=== PATIENT | male | born 1955 | race Caucasian/White ===

== ENCOUNTER → 2016-09-17 | Outpatient (CLI) | payer MEDICARE, SELFPAY | LOC: RAD 08:22 | DX: R06.02 Shortness of breath (principal); J90 Pleural effusion, not elsewhere classified; R91.8 Other nonspecific abnormal finding of lung field | CPT/HCPCS: 71020 ==

== ENCOUNTER → 2016-09-25 | Outpatient (CLI) | payer MEDICARE, SELFPAY | LOC: CT 07:42 | DX: R06.02 Shortness of breath (principal); R91.1 Solitary pulmonary nodule; J98.11 Atelectasis | CPT/HCPCS: 36415; 71260; 82565; 84520; J7050; Q9962 ==

== ENCOUNTER → 2021-02-24 | Outpatient (CLI) | payer OTHER ==
[~2021-02-24] MED LIST: ASPIRIN 325MG325 MG PO; ASPIRIN EC81 MG PO; ATORVASTATIN CA80 MG PO; CLOPIDOGREL75 MG PO; CYCLOBENZAPRINE10 MG PO; DULCOLAX STOOL100 MG PO; DURAGESIC 25 MCG1 EA TP; FENOFIBRATE145 MG PO; FENTANYL PATCH TD; FLEXERIL 10 MG10 MG PO; FOLIC ACID1 MG PO; FUROSEMIDE20 MG PO; GLUCOPHAGE500 MG PO; IMDUR ER TAB 3030 MG PO; IMDUR ER TAB 6060 MG PO; ISOSORBIDE MONO60 MG PO; LASIX20 MG PO; LIPITOR TAB 2020 MG PO; LOPRESSOR50 MG PO; MEDROL4 MG PO; METFORMIN HCL500 MG PO; METOPROLOL TART50 MG PO; MIRAPEX0.25 MG PO; OXYCODONE-ACET1 EACH PO; PERCOCET 10-321 EACH PO; PLAVIX75 MG PO; PRAMIPEXOLE DI0.5 MG PO; PROAIR HFA8.5 GM INH; PROTONIX40 MG PO; SPIRIVA18 MCG INH; SYMBICORT 160-1 INHA INH; TRELEGY ELLIPT1 EACH INH; TRELEGY ELLIPTA INH; TRICOR145 MG PO; VITAMIN D250000 UNIT PO
== END ==
LOC: HEART 5 08:48
DX: J45.909 Unspecified asthma, uncomplicated (principal)
CPT/HCPCS: 94060; 94729

== ENCOUNTER → 2021-04-22 | Day surgery (SDC) | payer OTHER ==
[~2021-04-22] VITALS: Ht 172.7 cm; Wt 61.2 kg
[~2021-04-22] MED LIST changes: +COMBIVENT RESPIM4 GM INH; +DALIRESP500 MCG PO; +DOCUSATE SODIU100 MG PO; +FEROSUL325 MG PO; +FISH OIL + D31 EACH PO; +LEXAPRO20 MG PO; +NITROSTAT0.4 MG SL
== END | disposition home or self-care (01) ==
LOC: OR 07:35
DX: K31.819 Angiodysplasia of stomach and duodenum without bleeding (principal); D50.0 Iron deficiency anemia secondary to blood loss (chronic); K64.0 First degree hemorrhoids; K92.1 Melena; I11.0 Hypertensive heart disease with heart failure; I50.9 Heart failure, unspecified; I25.10 Atherosclerotic heart disease of native coronary artery without angina pectoris; E78.5 Hyperlipidemia, unspecified; E78.00 Pure hypercholesterolemia, unspecified; E11.9 Type 2 diabetes mellitus without complications; E66.3 Overweight; K21.00 Gastro-esophageal reflux disease with esophagitis, without bleeding; K29.50 Unspecified chronic gastritis without bleeding; F17.200 Nicotine dependence, unspecified, uncomplicated; G47.33 Obstructive sleep apnea (adult) (pediatric); K21.9 Gastro-esophageal reflux disease without esophagitis; G89.29 Other chronic pain; F32.A Depression, unspecified; Z95.1 Presence of aortocoronary bypass graft; Z95.818 Presence of other cardiac implants and grafts; Z99.89 Dependence on other enabling machines and devices; Z68.20 Body mass index [BMI] 20.0-20.9, adult; Z79.899 Other long term (current) drug therapy; Z79.82 Long term (current) use of aspirin; Z88.5 Allergy status to narcotic agent; Z79.84 Long term (current) use of oral hypoglycemic drugs; Z90.49 Acquired absence of other specified parts of digestive tract; Z89.511 Acquired absence of right leg below knee
CPT/HCPCS: 82962; J2001; J2250; J2704; J3010; J7040

== ENCOUNTER → 2021-07-28 | Outpatient (CLI) | payer OTHER | LOC: KOH-I 13:53 | DX: M79.645 Pain in left finger(s) (principal); M19.042 Primary osteoarthritis, left hand | CPT/HCPCS: 73140 ==

== ENCOUNTER → 2021-08-14 | Outpatient (CLI) | payer OTHER ==
[2021-08-14 16:17] LABS: BORDETELLA PARAPERTUSSIS Not Detected (Not Detectd); BORDETELLA PERTUSSIS Not Detected (Not Detectd); CHLAMYDIA PNEUMONIAE Not Detected (Not Detectd); CORONAVIRUS HKU1 Not Detected (Not Detectd); CORONAVIRUS NL63 Not Detected (Not Detectd); CORONAVIRUS OC43 Not Detected (Not Detectd); CORONOAVIRUS 229E Not Detected (Not Detectd); HUMAN METAPNEUMOVIRUS Not Detected (Not Detectd); INFLUENZA A Not Detected (Not Detectd); INFLUENZA B Not Detected (Not Detectd); MYCOPLASMA PNEUMONIAE Not Detected (Not Detectd); PARAINFLUENZA VIRUS 1 Not Detected (Not Detectd); PARAINFLUENZA VIRUS 2 Not Detected (Not Detectd); PARAINFLUENZA VIRUS 3 Not Detected (Not Detectd); PARAINFLUENZA VIRUS 4 Not Detected (Not Detectd); RESPIRATORY SYNCYTIAL VIRUS Not Detected (Not Detectd)
[2021-08-14 17:36] LABS: HUMAN RHINOVIRUS/ENTEROVIRUS DETECTED (Not Detectd); SARS-CoV-2 NOT DETECTED (Not Detectd)
== END ==
LOC: LAB 15:36
PROVIDERS: Physician Assistant
DX: J44.1 Chronic obstructive pulmonary disease with (acute) exacerbation (principal); J06.9 Acute upper respiratory infection, unspecified; Z20.822 Contact with and (suspected) exposure to COVID-19; J90 Pleural effusion, not elsewhere classified; R91.8 Other nonspecific abnormal finding of lung field
CPT/HCPCS: 36415; 71046; 87633

== ENCOUNTER → 2021-08-18 | Outpatient (CLI) | payer OTHER | LOC: KOH-I 15:24 | DX: R31.0 Gross hematuria (principal); N32.9 Bladder disorder, unspecified; J92.9 Pleural plaque without asbestos | CPT/HCPCS: 74176 ==

== ENCOUNTER 2021-09-12 07:56 | Emergency (ER) | payer OTHER ==
[2021-09-12 08:47] LABS: HEMOGLOBIN 10.9 gm/dl (14.0-17.5); RED BLOOD COUNT 3.64 M/UL (4.20-5.50); WHITE BLOOD COUNT 11.2 K/UL (4.5-11.0)
[2021-09-12 09:11] LABS: BUN/CREATININE RATIO 29 (0-10)
== END 2021-09-13 08:55 ==
LOC: ER1 07:56
PROVIDERS: Student in an Organized Health Care Education/Training Program
DX: R33.9 Retention of urine, unspecified (principal); R31.0 Gross hematuria; Z20.822 Contact with and (suspected) exposure to COVID-19; I50.9 Heart failure, unspecified; J44.9 Chronic obstructive pulmonary disease, unspecified; Z95.1 Presence of aortocoronary bypass graft; Z79.82 Long term (current) use of aspirin; Z79.02 Long term (current) use of antithrombotics/antiplatelets
CPT/HCPCS: 80053; 81001; 85025; 99284; U0002

== ENCOUNTER 2021-10-04 04:52 | Emergency (ER) | payer OTHER ==
[2021-10-04 06:22] LABS: HEMOGLOBIN 12.3 gm/dl (14.0-17.5); RED BLOOD COUNT 4.11 M/UL (4.20-5.50); WHITE BLOOD COUNT 13.5 K/UL (4.5-11.0)
[2021-10-04 06:48] LABS: BUN/CREATININE RATIO 33 (0-10)
== END 2021-10-04 09:00 | disposition home or self-care (01) ==
LOC: ER1 04:52
PROVIDERS: Physician Assistant Medical
DX: C67.9 Malignant neoplasm of bladder, unspecified (principal); I11.9 Hypertensive heart disease without heart failure; I25.2 Old myocardial infarction; J44.9 Chronic obstructive pulmonary disease, unspecified; E11.9 Type 2 diabetes mellitus without complications; Z79.84 Long term (current) use of oral hypoglycemic drugs; Z95.1 Presence of aortocoronary bypass graft; Z79.82 Long term (current) use of aspirin; Z79.02 Long term (current) use of antithrombotics/antiplatelets; Z88.5 Allergy status to narcotic agent
CPT/HCPCS: 51702; 80053; 81001; 85025; 87086; 99283